=== PATIENT | male | born 1980 | race African-American/Black ===

== ENCOUNTER 2017-06-03 14:13 | Inpatient (IN) | payer MEDICAID, MEDICARE ==
[~2017-06-03] VITALS: Ht 193 cm; Wt 111.6 kg
[2017-06-03 15:09] VITALS: BP 147/87
--- NOTE | 2017-06-03 15:49 | NUR ---
Patient ambulated to bed 4. RN evaluating patient at bedside.
--- NOTE | 2017-06-03 16:02 | NUR ---
DROP BY FRIEND TO THE HOSPITAL DUE TO C/O AUDITORY HALLUCINATIONS, --- PER PT, VOICES SAYING HE AINT SHIT AND HE SHOULD KILL HIMSELF!---PT DOES NOT WANT TO HURT HIMSELF BUT HE IS SCARED. --SOFT SPOKEN APPEARS CALM, OPEN TO CONVERSATION---- HX---PARANOIA SCHIZOPHRENIA, DEPRESSION, RX---NON COMPLIANT, PER PT HE DOESNT LIKE TO TAKE HIS MEDS, AND HE HAS SUICIDAL THOUGHT AND THE VOICE CAME BACK, ENCOURAGED TO VERBALIZED FEELINGS, PT CALM AT THIS TIME.
--- NOTE | 2017-06-03 16:06 | NUR ---
PT ASKING FOR SHARLENE, WILL ASK KITCHEN FOR SHARLENE
--- NOTE | 2017-06-03 16:22 | NUR ---
PT EYES CLOSE, NO AGITATION NOTED, STUDENT NURSE AT BEDSIDE
--- NOTE | 2017-06-03 16:23 | NUR ---
Dr. Duenas evaluating patient at bedside.
--- NOTE | 2017-06-03 16:39 | NUR ---
WILL RELAY TO DR. SALDIVAR RESULT OF URINE DIPSTICK
[2017-06-03 16:47] LABS: BASOPHILS # (AUTO) 0.2 K/uL (0.00-0.22); BASOPHILS % (AUTO) 3.6 % (0.0-2.0); EOSINOPHILS # (AUTO) 0.1 K/uL (0-0.4); EOSINOPHILS % (AUTO) 1.3 % (0.0-4.0); HEMATOCRIT 47.7 % (36-52); HEMOGLOBIN 15.2 g/dL (12.0-18.0); LYMPHOCYTES # (AUTO) 1.4 K/uL (2.0-11.5); LYMPHOCYTES % (AUTO) 24.3 % (20.5-51.1); MEAN CORPUSCULAR HEMOGLOBIN 29 pg (27-31); MEAN CORPUSCULAR HGB CONC 32 g/dL (33-37); MEAN CORPUSCULAR VOLUME 91 fL (80-94); MONOCYTES # (AUTO) 0.8 K/uL (0.8-1.0); MONOCYTES % (AUTO) 14.3 % (1.7-9.3); NEUTROPHILS # (AUTO) 3.4 K/uL (1.8-7.7); NEUTROPHILS % (AUTO) 56.5 % (42.2-75.2); PLATELET COUNT (AUTO) 249 K/uL (140-450); RED BLOOD CELL COUNT(AUTO) 5.27 MIL/uL (4.20-6.10); RED CELL DISTRIBUTION WIDTH 13.9 % (11.6-13.7); WHITE BLOOD COUNT (AUTO) 5.9 K/uL (4.8-10.8)
--- NOTE | 2017-06-03 16:47 | NUR ---
PT CALM, STUDENT AT BEDSIDE, VITAL SIGN STABLE
[2017-06-03 16:49] LABS: APPEARANCE,URINE CLEAR (CLEAR); BILIRUBIN,URINE 1+ (NEGATIVE); BLOOD, URINE TRACE-I (NEGATIVE); COLOR,URINE YELLOW (YELLOW); LEUKOCYTE ESTERASE ,URINE NEGATIVE (NEGATIVE); NITRITE, URINE NEGATIVE (NEGATIVE); PH,URINE 5.5 (5.0-9.0); UGLUCOSE NEGATIVE (NEGATIVE)
[2017-06-03 16:51] LABS: RBC,URINE 0-5 (RARE) /HPF (0-5); WBC,URINE 0-5 (RARE) /HPF (0-5)
[2017-06-03 16:55] LABS: BARBITURATE, URINE NEG. ng/ml (NEG <=200); BENZODIAZEPINE, URINE NEG. ng/mL (NEG <=200); CANNABINOID, URINE NEG. ng/mL (NEG <=50); COCAINE, URINE NEG. ng/mL (NEG <=300); OPIATE, URINE NEG. ng/mL (NEG <=2000); PHENCYCLIDINE SCREEN,URINE NEG. ng/mL (NEG <=25)
[2017-06-03 17:01] LABS: ALBUMIN 4.1 g/dL (3.4-5.0); ANION GAP 8.9 (8-16); ASPARTATE AMINOTRANSFERASE 28 U/L (15-37); CARBON DIOXIDE 32.1 mmol/L (21-32); CHLORIDE 101 mmol/L (98-107); CREATININE 1.5 mg/dL (0.7-1.3); GFR ARICAN-AMERICAN 68 mL/min (>90); GLUCOSE 106 mg/dL (74-106); SODIUM SERUM 138 mmol/L (136-145); TOTAL BILIRUBIN 0.9 mg/dL (0.0-1.0); UREA NITROGEN, BLOOD 25 mg/dL (7-18)
[2017-06-03 17:02] LABS: ACETAMINOPHEN < 0.5 ug/ml (10-30); SALICYLATE < 2.8 mg/dL (2.8-20.0)
--- NOTE | 2017-06-03 17:05 | NUR ---
PT FINISHED EATING SANDWHICH, PT CALM NO AGITATION, NO DISTRESS NOTED.
--- NOTE | 2017-06-03 17:08 | NUR ---
Patient transferred to bed 6 for further care. RN re-evaluating patient at bedside.
--- NOTE | 2017-06-03 17:15 | NUR ---
[place] [facility] evaluating patient for 5150 hold at bedside.
--- NOTE | 2017-06-03 17:47 | NUR ---
PT EATING DINNER, SECURITY AT BEDSIDE
--- NOTE | 2017-06-03 17:58 | NUR ---
PT FINISHED EATING DINNER WITH GOOD APPETITE 100 PERCENT ,PER PT NO PLAN OF COMMITING SUICIDE AT THIS TIME AND HE DOESNT HEARD VOICES AT THIS TIME, PER PT HE HAS DRUG ABUSE , HE TOOK METHS 3 DAYS AGO.
--- NOTE | 2017-06-03 18:28 | NUR ---
Notified Dr. Mcdonald's group of consultation.
--- NOTE | 2017-06-03 18:44 | NUR ---
PT AWARE WILL BE TRANSFER TO THE FLOOR ,CHARGE NURSE WILL INSERT IV AT THIS TIME.
--- NOTE | 2017-06-03 18:56 | NUR ---
CALL FLOOR IF READY FOR TRANSFER PER ROXANNA TRANSFER PT AFTER 7PM, SITTER NOT AVAILABLE AT THIS TIME.
[2017-06-03] MEDS ORDERED: HYDROcodone/APAP 7.5/325 MG 1 TAB PO PRN (19:05)
[2017-06-03] MEDS ORDERED: ONDANSETRON 4 MG/2 ML VIAL IVP PRN (19:05)
[2017-06-03] MEDS ORDERED: ACETAMINOPHEN 325 MG TAB PO PRN (19:05)
--- NOTE | 2017-06-03 19:16 | NUR ---
REPORT GIVEN TO ANA AT BEDSIDE, PT ISRAEL FAM AT BEDSIDE
[2017-06-03 19:30] VITALS: BP 124/66
--- NOTE | 2017-06-03 19:30 | NUR ---
PATIENT ADMITTED TO THE UNIT ON 5150 HOLD FROM THE ER. PATIENT REPORT RECEIVED FROM SHONDA ZHAO AT BEDSIDE. PATIENT IS AWAKE, ALERT AND ORIENTED. AMBULATORY. NO SIGNS AND SYMPTOMS OF DISTRESS NOTED. NO COMPLAINTS OF PAIN AT THIS TIME. SKIN IS INTACT. IV SITE NOTED ON RIGHT HAND, SALINE LOCKED. PLAN OF CARE DISCUSSED WITH PATIENT. 1:1 SITTER PRESENT. WILL CONTINUE TO MONITOR.
[2017-06-03 19:38] LABS: CHOL/HDL RATIO 2.9 (1-4.5); FREE T4 (FREE THYROXINE) 0.85 ng/dL (0.76-1.46); MAGNESIUM 2.3 mg/dL (1.8-2.4); PHOSPHORUS 3.8 mg/dL (2.5-4.9); THYROID STIMULATING HORMONE 0.9 uIU/mL (0.34-3.74)
[2017-06-03 19:42] LABS: PROTHROMBIN TIME 11.1 secs (10.8-13.4)
--- NOTE | 2017-06-03 19:45 | NUR ---
PATIENT SEEN BY DR. LINK
[2017-06-03] MEDS ORDERED: KCL 20 MEQ/WATER INJ PREMIX 200 ML IV ONE (21:25)
--- NOTE | 2017-06-03 21:30 | NUR ---
PATIENT REPORT GIVEN TO SHONDA PERSON FOR CONTINUITY OF CARE AND ADMISSION OF PATIENT
[2017-06-03] MEDS ORDERED: LORazepam 1 MG TAB PO PRN (21:35)
--- NOTE | 2017-06-03 21:35 | NUR ---
RECEIVED REPORT FROM PM NURSE FOR CONTINUATION OF CARE. PT MOVED TO BED 109A. PT RESTING IN BED, AOX4, AMBULATORY, ABLE TO VERBALIZE NEEDS. PT DENIES SI AT THIS TIME BUT DID HAVE VAGUE COMMAND HALLUCINATIONS TO KILL HIMSELF BEFORE ADMISSION. PT IS CALM AND COOPERATIVE. IV ACCESS ASYMPTOMATIC, PATENT AND INTACT. WILL ADMINISTER IVF ORDERED. DISCUSSED AND REVIEWED PLAN OF CARE WITH PT. PT VERBALIZED UNDERSTANDING. ALL NEEDS MET. 1:1 SITTER WITH CLOSE MONITORING MAINTAINED. ENVIRONMENT CHECKED, SAFETY MEASURES ENSURED. CALL LIGHT WITHIN REACH. WILL CONTINUE TO MONITOR.
[2017-06-03] MEDS ORDERED: VENLAFAXINE 37.5 MG TAB ONE (21:42)
[2017-06-03] MEDS ORDERED: QUEtiapine FUMARATE 25 MG TAB ONE (21:43)
[2017-06-03] MEDS: NACL 0.9% 1,000 ML IV SCH (22:09)
[2017-06-03] MEDS: QUEtiapine FUMARATE 25 MG TAB PO SCH (22:11)
[2017-06-03] MEDS: DOCUSATE SODIUM 100 MG GELCAP PO SCH (22:11)
[2017-06-03] MEDS: VENLAFAXINE 37.5 MG TAB PO SCH (22:12)
--- NOTE | 2017-06-03 22:15 | NUR ---
ADMINISTERED DUE MEDS WITH EDUCATION. PT VERBALIZED UNDERSTANDING, TOLERATED MEDS WELL. ALL NEEDS MET. IVF INFUSING WELL. 1:1 SITTER WITH CLOSE MONITORING MAINTAINED. SAFETY MEASURES ENSURED. WILL CONTINUE TO MONITOR.
[2017-06-03] MEDS ORDERED: LURA40TA PO (22:45)
[2017-06-03] MEDS ORDERED: VENL37.55 PO (22:45)
[2017-06-04] VITALS: BP 118/65
--- NOTE | 2017-06-04 00:01 | NUR ---
PT SLEEPING COMFORTABLY, AROUSABLE TO NAME, NO S/S OF ACUTE DISTRESS. ALL NEEDS MET. IVF INFUSING WELL. 1:1 SITTER WITH CLOSE MONITORING MAINTAINED. ENVIRONMENT CHECKED, SAFETY MEASURES ENSURED. WILL CONTINUE TO MONITOR.
[2017-06-04 04:00] VITALS: BP 114/68
[2017-06-04] MEDS: NACL 0.9% 1,000 ML IV SCH ×2 (04:16→08:24)
--- NOTE | 2017-06-04 07:05 | NUR ---
ENDORSED PLAN OF CARE TO AM NURSE. CONDITION STABLE.
[2017-06-04 07:10] LABS: ANION GAP 11.8 (8-16); CARBON DIOXIDE 27.2 mmol/L (21-32); CREATININE 1.1 mg/dL (0.7-1.3)
--- NOTE | 2017-06-04 07:30 | NUR ---
RECEIVED REPORT FROM SHONDA SHELL. PT RESTING IN BED. AAOX4. NO S/S OF ACUTE DISTRESS. PT DENIES PAIN. IV SITE PATENT AND INTACT. PT DENIES SUICIDAL IDEATION AT THIS TIME. NO VOICES HEARD. 1:1 SITTER PRESENT. WILL CONTINUE TO MONITOR.
[2017-06-04 08:00] VITALS: BP 93/63
[2017-06-04] MEDS: DOCUSATE SODIUM 100 MG GELCAP PO SCH ×2 (08:23→20:01)
[2017-06-04] MEDS: VENLAFAXINE 37.5 MG TAB PO SCH (08:23)
[2017-06-04] MEDS: QUEtiapine FUMARATE 25 MG TAB PO SCH (08:23)
--- NOTE | 2017-06-04 09:58 | NUR ---
PATIENT HAS BEEN SCREENED AND CATEGORIZED LOW NUTRITION RISK. PATIENT WILL BE SEEN WITHIN 7 DAYS OF ADMISSION. 06/10/[address]
[2017-06-04 12:00] VITALS: BP 112/83
--- NOTE | 2017-06-04 14:38 | NUR ---
PT RESTING IN BED. NO S/S OF ACUTE DISTRESS. PT DENIES PAIN. CALL LIGHT WITHIN REACH. WILL CONTINUE TO MONITOR.
[2017-06-04 16:00] VITALS: BP 123/63
--- NOTE | 2017-06-04 16:53 | NUR ---
PT RESTING IN BED. NO S/S OF ACUTE DISTRESS. WILL CONTINUE TO MONITOR.
--- NOTE | 2017-06-04 19:12 | NUR ---
Improve/maintain cardiac function/status Addendum: 06/04/17 at 1913 by Juancho Harvey RN ENDORSED PLAN OF CARE TO NIGHT RN. PT REMAINS STABLE.
--- NOTE | 2017-06-04 19:13 | NUR ---
Patient's Plan of Care was discussed and reviewed with SPORTS PHOTOGRAPHER: BILLIE CARTER
--- NOTE | 2017-06-04 19:13 | NUR ---
PATIENT IS CURRENTLY RESTING IN BED AWAKE DENIES PAIN AND DISCOMFORT AT THIS TIME. NO SUICIDAL THOUGHTS OR IDEATION CONTINUES TO HAVE SITTER 1:1 AND CONTINUES TO BE MONITORED.IVF INFUSING WELL IV SITE PATENT.
--- NOTE | 2017-06-04 20:01 | NUR ---
PATIENT REFUSED HIS NIGHT TIME STOOL SOFTENER PATIENT STATES,"IM OK I DON'T WANT IT." PATIENT REFUSED.
--- NOTE | 2017-06-04 23:15 | NUR ---
PATIENT CURRENTLY SLEEPING WELL IN BED IN NO DISTRESS WILL CONTINUE TO MONITOR.
[2017-06-05] MEDS: NACL 0.9% 1,000 ML IV SCH ×3 (00:28→15:33)
--- NOTE | 2017-06-05 00:58 | NUR ---
PATIENT CURRENTLY SLEEPING WILL CHECK VITAL SIGNS LATER WHEN AWAKE.PATIENT CURRENTLY STABLE IVF INFUSING WELL IV SITE PATENT.
--- NOTE | 2017-06-05 02:44 | NUR ---
PATIENT SLEEPING IN BED AT THIS TIME IVF INFUSING WELL IV SITE PATENT. NO PAIN OR DISCOMFORT NOTED.
--- NOTE | 2017-06-05 03:39 | NUR ---
PATIENT SLEEPING WELL IN NO DISTRESS WILL CONTINUE TO MONITOR.
--- NOTE | 2017-06-05 05:00 | NUR ---
PATIENT SLEEPING NO DISTRESS WILL CONTINUE TO MONITOR.
--- NOTE | 2017-06-05 06:37 | NUR ---
PATIENT SLEEPING NO SUICIDAL THOUGHTS OR IDEATIONS DURING THE NIGHT NO ATTEMPTS TO HARM HIMSELF OR STAFF.WILL CONTINUE TO MONITOR.CONTINUES TO HAVE SITTER 1:1 MENDOZA WATCHING OVER THEM.WILL CONTINUE TO OBSERVE.
--- NOTE | 2017-06-05 07:20 | NUR ---
ASSUMED CONTINUITY OF CARE. NO SIGNS AND SYMPTOMS OF ACUTE DISTRESS NOTICED. INITIAL ASSESSMENT DONE. CALM, QUIET AND COOPERATIVE. NO SUICIDAL THOUGHTS OBSERVED. KEEP SURROUNDINGS SAFE. CLOSELY MONITORED BY A ISRAEL MENDOZA.
[2017-06-05 07:22] LABS: ANION GAP 8.4 (8-16); CARBON DIOXIDE 29.8 mmol/L (21-32); CREATININE 1.1 mg/dL (0.7-1.3); HEMATOCRIT 42.6 % (36-52); HEMOGLOBIN 14.1 g/dL (12.0-18.0); MEAN CORPUSCULAR HEMOGLOBIN 30 pg (27-31); MEAN CORPUSCULAR HGB CONC 33 g/dL (33-37); MEAN CORPUSCULAR VOLUME 91 fL (80-94); PLATELET COUNT (AUTO) 209 K/uL (140-450); POTASSIUM 4.2 mmol/L (3.5-5.1); RED BLOOD CELL COUNT(AUTO) 4.69 MIL/uL (4.20-6.10); RED CELL DISTRIBUTION WIDTH 14.1 % (11.6-13.7); WHITE BLOOD COUNT (AUTO) 4.7 K/uL (4.8-10.8)
[2017-06-05 07:27] LABS: MAGNESIUM 2.1 mg/dL (1.8-2.4); PHOSPHORUS 2.8 mg/dL (2.5-4.9)
--- NOTE | 2017-06-05 07:32 | NUR ---
PATIENT STABLE REPORT ENDORSED TO TENT FINISHER JOHNRE HE WILL RESUME CARE OF THE PATIENT.
[2017-06-05 08:00] VITALS: BP 128/79
[2017-06-05 08:35] LABS: EOSINOPHILS % (MANUAL) 5 % (0-4); LYMPHOCYTES % (MANUAL) 45 % (20-46); MONOCYTES % (MANUAL) 13 % (5-12)
[2017-06-05] MEDS: DOCUSATE SODIUM 100 MG GELCAP PO SCH ×2 (08:44→21:00)
[2017-06-05] MEDS: VENLAFAXINE 37.5 MG TAB PO SCH (08:44)
[2017-06-05] MEDS: QUEtiapine FUMARATE 25 MG TAB PO SCH (08:44)
[2017-06-05] MEDS ORDERED: risperiDONE 1 MG TAB PO SCH (09:20)
--- NOTE | 2017-06-05 10:37 | NUR ---
WENT TO BATHROOM. TOLERATED WELL. NO SOB, NOTED. CONTINUE TO MONITOR.
[2017-06-05 12:00] VITALS: BP 111/62
--- NOTE | 2017-06-05 12:00 | NUR ---
VITALS SIGNS STABLE. NO C/O PAIN. CONTINUE MONITORING 1:1.
--- NOTE | 2017-06-05 12:27 | NUR ---
INFORMATION FAXED TO [facility] CALL [facility] FAX [phone] PHONE [phone]
--- NOTE | 2017-06-05 14:54 | NUR ---
Clinical review faxed to [facility] at [phone]
--- NOTE | 2017-06-05 16:25 | NUR ---
SEEN SLEEPING WELL. NO DISCOMFORT NOTED. KEEP FREE FROM INJURY.
--- NOTE | 2017-06-05 19:15 | NUR ---
BEDSIDE REPORT GIVEN TO ELLA RIZZO. IVF INFUSING WELL. IN STABLE CONDITION.
--- NOTE | 2017-06-05 19:16 | NUR ---
RECEIVED REPORT AT BEDSIDE FROM DAY SHIFT NURSE PRICILLA. PT IS A/OX4, ON ROOM AIR. PT HAS A 22G RIGHT HAND IV, INFUSING NS@100ML/HR. SKIN INTACT. SAFETY PRECAUTIONS IN PLACE. 1:1 SITTER. UPDATED BOARD. DISCUSSED PLAN OF CARE WITH PT, PT VERBALIZED UNDERSTANDING. VITAL SIGNS WITHIN NORMAL LIMITS. PT IN STABLE CONDITION, NO SIGNS OF DISTRESS NOTED. BED IN LOW POSITION, CALL LIGHT WITHIN REACH. WILL CONTINUE TO MONITOR.
[2017-06-05 20:05] VITALS: BP 123/71
--- NOTE | 2017-06-05 21:16 | NUR ---
PT REFUSED SCHEDULED MEDICATION, PT EDUCATED ON RISKS AND BENEFITS OF MEDICATION, PT VERBALIZED UNDERSTANDING AND REFUSED. PT IN STABLE CONDITION.
[2017-06-06] VITALS: BP 115/71
--- NOTE | 2017-06-06 03:50 | NUR ---
PT REFUSED IV FLUIDS BEING INFUSED. HE SAID TO "REMOVE THE LINE AND TURN OFF THE PUMP." INFORMED DR LEE, SAID IT WAS OK. PT IN STABLE CONDITION, NO SIGNS OF DISTRESS NOTED. BED IN LOW POSITION, CALL LIGHT WITHIN REACH. WILL CONTINUE TO MONITOR.
[2017-06-06] MEDS: NACL 0.9% 1,000 ML IV SCH ×2 (06:05→16:28)
--- NOTE | 2017-06-06 07:06 | NUR ---
ASSUMED CONTINUITY OF CARE. NO SIGNS AND SYMPTOMS OF ACUTE DISTRESS NOTED. INITIAL ASSESSMENT DONE. CALM, QUIET, AND COOPERATIVE. REFUSED IVF INFUSION. KEEP SURROUNDINGS SAFE. CLOSELY MONITORED BY A SITTER 1:1.
--- NOTE | 2017-06-06 07:10 | NUR ---
ENDORSED PT TO DAY SHIFT NURSE FOR CONTINUITY OF CARE. PT IN STABLE CONDITION.
[2017-06-06 08:00] VITALS: BP 135/82
--- NOTE | 2017-06-06 08:00 | NUR ---
Patient's Plan of Care was discussed and reviewed with RITO Mauro
[2017-06-06] MEDS: VENLAFAXINE 37.5 MG TAB PO SCH (08:28)
[2017-06-06] MEDS: DOCUSATE SODIUM 100 MG GELCAP PO SCH (08:28)
[2017-06-06] MEDS ORDERED: risperiDONE 1 MG TAB PO SCH (09:00)
--- NOTE | 2017-06-06 09:55 | NUR ---
INFORMED DR. BORRERO THAT PT. REFUSED DOCUSATE AND RISPERDAL FOR 0900 SCHEDULE MEDICINE, AND ALSO REFUSED IVF INFUSION.
[2017-06-06 12:00] VITALS: BP 109/65
--- NOTE | 2017-06-06 12:37 | NUR ---
CALLED [facility] CALL CENTER AND SPOKE WITH RADHA. NO PSYCH BEDS YET.
--- NOTE | 2017-06-06 16:12 | NUR ---
DR. WALSH CAME AND SEEN PT.. PT. CALM AND COOPERATIVE.
--- NOTE | 2017-06-06 17:15 | NUR ---
DR. BORRERO AND HUMAN RESOURCES TRAINER -MAURA CAME AND SPOKE TO PT. REGARDING PT. D/C IN AM 06/07/17. PT. CALM, QUIET, COOPERATIVE. NO UNTOWARD BEHAVIOR OBSERVED.
--- NOTE | 2017-06-06 19:15 | NUR ---
BEDSIDE REPORT GIVEN TO ALVIN RIZZO. CALM, QUIET, AND RESTING ON BED. IN STABLE CONDITION. ALSO ENDORSED ABOUT PT. D/C IN AM 06/07/17.
--- NOTE | 2017-06-06 19:35 | NUR ---
RECEIVED PT FROM NURSE PLEITEZ. RESTING QUIETLY AWAKEN BRIEFLY FOR V/S. OFFERS NO COMPLAINTS. INSTRUCTED TO CALL IF NEEDED ASSISTANCE.
[2017-06-06 20:00] VITALS: BP 100/66
[2017-06-07] VITALS: BP 100/44
--- NOTE | 2017-06-07 | NUR ---
AWAKEN FOR V/S,NO COMPLAINTS. UP TO BR.
--- NOTE | 2017-06-07 02:00 | NUR ---
PT SLEEPING SOUNDLY, NO SIGN OF DISTRESS.
--- NOTE | 2017-06-07 04:22 | NUR ---
CHECKED PT, APPEARS ASLEEP.
[2017-06-07 06:33] VITALS: BP 100/44
--- NOTE | 2017-06-07 06:55 | NUR ---
D/C PT TO HOME PER PT, GIVEN BUS PASS, NO C/O PAIN OR RESPIRATORY DISTRESS.
--- NOTE | 2017-06-07 11:55 | NUR ---
CM NOTE PER CM [place] [facility] PH# [phone] EXT [phone], REVIEWS SHOULD BE SENT TO [facility]. CONCURRENT REVIEW FAXED TO [facility] [phone] [place] PH# [phone] AND TO [facility] [phone] PH# [phone].
== END 2017-06-07 07:57 | disposition home or self-care (01) | DRG 812 ==
LOC: MED 14:13 → MTU 18:38
PROVIDERS: ADMIT Student in an Organized Health Care Education/Training Program; ATTEND Student in an Organized Health Care Education/Training Program
DX: T43.621A Poisoning by amphetamines, accidental (unintentional), initial encounter (principal); N17.0 Acute kidney failure with tubular necrosis; G92 Toxic encephalopathy; F33.2 Major depressive disorder, recurrent severe without psychotic features; E78.5 Hyperlipidemia, unspecified; F20.0 Paranoid schizophrenia; F15.10 Other stimulant abuse, uncomplicated; F19.10 Other psychoactive substance abuse, uncomplicated; R45.851 Suicidal ideations; F17.210 Nicotine dependence, cigarettes, uncomplicated; Z91.14 Patient's other noncompliance with medication regimen; Z59.0 Homelessness; Y92.89 Other specified places as the place of occurrence of the external cause
CPT/HCPCS: 36415; 71010; 80048; 80053; 80305; 81001; 82140; 82150; 82948; 83605; 83690; 83735; 83880; 84100; 84439; 84443; 84484; 85025; 85610; 85730; 87081; 93005; 99285; G0480; G0482; J7030; Q0092

== ENCOUNTER 2018-03-09 19:33 | Inpatient (IN) | payer MEDICAID ==
[~2018-03-09] VITALS: Ht 193 cm; Wt 120.2 kg
[~2018-03-09 19:33] MED LIST: QUET100T44 PO
--- NOTE | 2018-03-09 19:34 | NUR ---
PT BROCK BLS TO ER BED 05
--- NOTE | 2018-03-09 19:34 | NUR ---
37/M BIBA FOR ALTERED MENTAL STATUS/AGITATION PICKED UP FROM [facility] TODAY. PER EMS, PT WALKED IN AT [facility] AND STARTED ASKING FOR HELP. PT NOTED WITH INCREASED AGITATION AND PARANIOA ON ARRIVAL. ER MD AT BEDSIDE.
[2018-03-09] MEDS ORDERED: LORazepam 2 MG/ML VIAL IM ONE (19:35)
[2018-03-09] MEDS ORDERED: HALOPERIDOL IM 5 MG/ML VIAL IM ONE (19:35)
[2018-03-09] MEDS ORDERED: LORazepam 1 MG TAB PO ONE (19:35)
[2018-03-09] MEDS ORDERED: NACL 0.9% 1,000 ML IV ONE (19:35)
[2018-03-09] MEDS ORDERED: HALOPERIDOL 5 MG TAB PO STA (19:40)
[2018-03-09] MEDS ORDERED: LORazepam 1 MG TAB ONE (19:40)
[2018-03-09] MEDS ORDERED: HALOPERIDOL IM 5 MG/ML VIAL ONE (19:41)
[2018-03-09] MEDS ORDERED: LORazepam 2 MG/ML VIAL ONE (19:41)
--- NOTE | 2018-03-09 19:45 | NUR ---
PT REFUSES TO LAY DOWN ON BED AT THIS TIME. SECURITY AT BEDSIDE.
--- NOTE | 2018-03-09 20:01 | NUR ---
PT LAID DOWN ON BED, RESTING COMFORTABLY.
--- NOTE | 2018-03-09 22:00 | NUR ---
Patient appears to be resting comfortably in bed. Respirations even and unlabored.
[2018-03-09 23:48] LABS: BASOPHILS % (AUTO) 0.5 % (0.0-2.0); EOSINOPHILS # (AUTO) 0.1 K/uL (0-0.4); EOSINOPHILS % (AUTO) 1.5 % (0.0-4.0); HEMATOCRIT 45.6 % (36-52); LYMPHOCYTES # (AUTO) 2.1 K/uL (2.0-11.5); LYMPHOCYTES % (AUTO) 24.4 % (20.5-51.1); MEAN CORPUSCULAR HEMOGLOBIN 30 pg (27-31); MEAN CORPUSCULAR HGB CONC 33 g/dL (33-37); MEAN CORPUSCULAR VOLUME 90.9 fL (80-94); MONOCYTES % (AUTO) 12.3 % (1.7-9.3); NEUTROPHILS # (AUTO) 5.2 K/uL (1.8-7.7); NEUTROPHILS % (AUTO) 61.3 % (42.2-75.2); PLATELET COUNT (AUTO) 238 K/uL (140-450); RED BLOOD CELL COUNT(AUTO) 5.02 MIL/uL (4.20-6.10); RED CELL DISTRIBUTION WIDTH 14.2 % (11.6-13.7); WHITE BLOOD COUNT (AUTO) 8.4 K/uL (4.8-10.8)
[2018-03-09 23:55] LABS: CARBON DIOXIDE 28.6 mmol/L (21-32); CHLORIDE 103 mmol/L (98-107); CREATININE 1.4 mg/dL (0.7-1.3); GFR ARICAN-AMERICAN 73 mL/min (>90); GLUCOSE 99 mg/dL (74-106); POTASSIUM 3.6 mmol/L (3.5-5.1); SODIUM SERUM 140 mmol/L (136-145); UREA NITROGEN, BLOOD 22 mg/dL (7-18)
[2018-03-09 23:57] LABS: BARBITURATE, URINE NEG. ng/ml (NEG <=200); BENZODIAZEPINE, URINE NEG. ng/mL (NEG <=200); CANNABINOID, URINE NEG. ng/mL (NEG <=50); COCAINE, URINE NEG. ng/mL (NEG <=300); OPIATE, URINE NEG. ng/mL (NEG <=2000); PHENCYCLIDINE SCREEN,URINE NEG. ng/mL (NEG <=25)
[2018-03-10 00:02] LABS: ALBUMIN 4.1 g/dL (3.4-5.0); ASPARTATE AMINOTRANSFERASE 32 U/L (15-37); TOTAL BILIRUBIN 1.6 mg/dL (0.0-1.0)
[2018-03-10 00:04] LABS: ACETAMINOPHEN < 0.5 ug/ml (10-30); SALICYLATE < 2.8 mg/dL (2.8-20.0)
--- NOTE | 2018-03-10 00:18 | NUR ---
Patient appears to be resting comfortably in bed. Vital Signs within normal limits. Respirations even and unlabored.
--- NOTE | 2018-03-10 00:44 | NUR ---
PER DR. RAO CONSULT FOR TELEPSYCH REQUESTED
--- NOTE | 2018-03-10 01:47 | NUR ---
Patient appears to be resting comfortably in bed. Vital Signs within normal limits. Respirations even and unlabored.
[2018-03-10] MEDS ORDERED: QUEtiapine FUMARATE 25 MG TAB PO STA (02:44)
[2018-03-10] MEDS ORDERED: QUEtiapine FUMARATE 25 MG TAB ONE (03:01)
--- NOTE | 2018-03-10 03:46 | NUR ---
Patient appears to be resting comfortably in bed. Vital Signs within normal limits. Respirations even and unlabored.
--- NOTE | 2018-03-10 03:50 | NUR ---
PT PLACED ON [address] RAO. BELONGINGS WITH SECURITY, SITTER AT BEDSIDE
--- NOTE | 2018-03-10 04:45 | NUR ---
[facility] staff faxed packets to [facility], [facility], [facility], [facility]. I called [facility] and spoke with Lisa, no beds available, packet was faxed. Called [facility] and spoke with Keke, no beds available, and she asked to call back later in the morning to see if they have a discharges.
--- NOTE | 2018-03-10 04:50 | NUR ---
Patient appears to be resting comfortably in bed. Vital Signs within normal limits. Respirations even and unlabored. Sitter at bedside
--- NOTE | 2018-03-10 05:50 | NUR ---
Patient appears to be resting comfortably in bed. Vital Signs within normal limits. Respirations even and unlabored. Sitter at bedside
--- NOTE | 2018-03-10 07:10 | NUR ---
GAVE REPORT TO TARAN MERCHANT FOR CONTINUATION OF CARE
--- NOTE | 2018-03-10 07:27 | NUR ---
patient awake communicating with staff/ doctor.denies discomfort
--- NOTE | 2018-03-10 07:56 | NUR ---
STILL AWAITING FOR PSYCH. PLACEMENT.PATIENT CALM AND RESTING AT THIS TIME. EMT AT BEDSIDE
--- NOTE | 2018-03-10 08:24 | NUR ---
patient awake,alert,oriented.patient calm,no agitation no sign of psychosis.ordered breakfast
[2018-03-10] MEDS ORDERED: ACETAMINOPHEN 325 MG TAB PO PRN (08:40)
[2018-03-10] MEDS ORDERED: DOCUSATE SODIUM 100 MG GELCAP PO PRN (08:40)
[2018-03-10] MEDS ORDERED: ONDANSETRON 4 MG/2 ML VIAL IM/IVP PRN (08:40)
--- NOTE | 2018-03-10 08:46 | NUR ---
got report from obi pt up in bed eating at this time.
--- NOTE | 2018-03-10 09:23 | NUR ---
Patient will be admitted to care of DR BEACH. Admited to MED SURG. Will go to room 110-B. Belongings list completed. Report to SHONDA MCKENNA.
[2018-03-10 09:30] VITALS: BP 100/51
[2018-03-10] MEDS ORDERED: NACL 0.9% 1,000 ML IV SCH (09:45)
[2018-03-10] MEDS ORDERED: MECLIZINE 25 MG TAB PO PRN (09:45)
--- NOTE | 2018-03-10 09:45 | NUR ---
RECEIVED REPORT FROM ER NURSE AT THE BEDSIDE. PT IS ON 5150 FOR SI. ADMITTING DX :SUICIDAL IDEATION, ENCEPHALOPATHY WITH CHIEF COMPLAIN OF ALTERED MENTAL STATUS. PT HAS HX OF SCHIZOPHRENIA, MAJOR DEPRESSIVE DISORDER. PER ER NURSE, PT WAS ADMINISTERED SEROQUEL 50 MH, ATIVAN, HALDOL 5MG . PT AWAKE , ALERT AND ORIENTED AT TIME OF ARRIVAL. PT IN CALM AND COOPERATIVE MOOD. VS AT TIME OF ARRIVAL T-97.5, BP 100/51, HR74, RR 20, O2 SAT 95%, DENIES ANY PAIN . NO CONTRABANDS PRESENT WITH PT. HAS IV LFT AC SL 20G. SITE INTACT AND PATENT. SKIN IS INTACT. PT POSITIVE FRO METHAMPHETAMINE ABUSE. STATES TO HAVE USED SPICE BEFOR HE CAME TO ER, WAS RUNNING INTO TRAFFIC WITH SUICIDAL IDEATION. PT AOX4, LUNGS SOUNDS CLEAR. PT ON 1:1 SITTER FOR CLOSE MONITORING FOR SI. WILL CONTINUE TO MONITOR PT.
[2018-03-10 10:51] LABS: CHOL/HDL RATIO 3.5 (1-4.5); MAGNESIUM 2.4 mg/dL (1.8-2.4); PHOSPHORUS 3.1 mg/dL (2.5-4.9); THYROID STIMULATING HORMONE 1.27 uIU/mL (0.34-3.74)
--- NOTE | 2018-03-10 11:00 | NUR ---
PT SLEEPING ON HIS BEDSIDE. PT CALM AND COOPERATIVE. FOLLOWS COMMAND. NO AGITATION NOTED. EKG DONE IN PT. WILL CONTINUE TO MONITOR PT.
--- NOTE | 2018-03-10 11:44 | NUR ---
ADMINISTERED 0.9NS @100 ML/HR TO PT. TOLERATED WELL. PT SLEEPING IN HIS BED. NO SIGN OF DISTRESS. WILL CONTINUE TO MONITOR PT. PT ON 1:1 SITTER FOR SUICIDAL IDEATION.
[2018-03-10 12:00] VITALS: BP 104/62
--- NOTE | 2018-03-10 13:17 | NUR ---
PT AWAKE. ATE HIS FOOD . WENT BACK TO SLEEP. NO SIGN OF DISTRESS NOTED. WILL CONTINUE TO MONITOR PT.
--- NOTE | 2018-03-10 14:43 | NUR ---
CHECKED ON PT. SLEEPING, NO DISTRESS NOTED, WILL CONTINUE TO MONITOR PT.
[2018-03-10 16:28] LABS: APPEARANCE,URINE CLEAR (CLEAR); BILIRUBIN,URINE 1+ (NEGATIVE); BLOOD, URINE NEGATIVE (NEGATIVE); COLOR,URINE YELLOW (YELLOW); LEUKOCYTE ESTERASE ,URINE NEGATIVE (NEGATIVE); NITRITE, URINE NEGATIVE (NEGATIVE); UGLUCOSE NEGATIVE (NEGATIVE)
[2018-03-10 16:40] VITALS: BP 110/47
--- NOTE | 2018-03-10 16:43 | NUR ---
PT SLEEPING IN HIS BED. WENT TO RESTROOM. COLLECTED URINE SAMPLE FOR UA. DENIES ANY PAIN. NO DISTRESS NOTED. PT CALM , COOPERATIVE. APPROPRIATE BEHAVIOR. WILL CONTINUE TO MONITOR PT.
[2018-03-10] MEDS: QUEtiapine FUMARATE 100 MG TAB PO SCH (17:17)
--- NOTE | 2018-03-10 17:19 | NUR ---
ADMINISTERED MEDS TO PT ORDERED. TOLERATED WELL. NO SIGN OD DISTRESS. WILL CONTINUE TO MONITOR PT.
--- NOTE | 2018-03-10 18:24 | NUR ---
PT SEEN BY DR. WALSH , PSYCHOLOGIST. OKAY TO TRANSFER TO [facility] ONCE MEDICALLY CLEARED. CONTINUES TO MEET 5150 HOLD. WILL CONTINUE TO MONITOR PT.
--- NOTE | 2018-03-10 19:14 | NUR ---
PT ENDORSED TO PM NURSE FOR CONTINUITY OF CARE. PT IN STABLE CONDITION.
--- NOTE | 2018-03-10 19:15 | NUR ---
RECEIVED PT IN STABLE CONDITION. PT ON MED SURG. HOLD. SLEEPING IN BED. WITH NO S/S OF ANY DISCOMFORT NOTED. ERNESTO ON THE LT C #20. BED ON LOW POSITION. WILL CONTINUE TO MONITOR PT FOR ANY SUICIDAL THOUGHTS.
--- NOTE | 2018-03-10 19:25 | NUR ---
CHECKED ON PT AFTER PT HAD SOME PUDDING AND JUICE. SAFETY CHECK DONE . NO SHARP OBJECTS NOTED IN THE AREA. ONLY PAPER BAG FOR TRASH IN ROOM. WILL CONTINUE TO CLOSELY MONITOR PT.
--- NOTE | 2018-03-10 19:30 | NUR ---
PT AWAKE. GOT UP TO THE BATHROOM AN VOIDED. THEN C/O THAT HE IS UNCOMFORTABLE WITH THE IV ACCESS, HE SAID IT HURTS. EXPLAINED THE PURPOSE OF THE NEEDED BUT STILL INSISTED ON HAVING IT REMOVED. DC'D WITH CATHETER INTACT . NO BLEEDING NOTED. WILL TRY LATER IF PT WILL ALLOW TO START IN ANOTHER SITE.
--- NOTE | 2018-03-10 20:00 | NUR ---
PT IS SLEEPING IN BED AT THIS TIME. WILL CONTINUE TO MONITOR.
--- NOTE | 2018-03-10 21:00 | NUR ---
PT SLEEPING IN BED . NO S/S OF ANY DISCOMFORT NOTED.
--- NOTE | 2018-03-10 21:03 | NUR ---
ABLE TO TALKED TO DR. MARIE,RESIDENT MD. MADE HIM AWARE ABOUT PT NO IV ACCESS AT THIS TIME. HE SAID IT IS OK. WILL CONTINUE TO CLOSELY MONITOR PT.
--- NOTE | 2018-03-10 23:21 | NUR ---
Called [facility] and s/w Rose, they have no beds at this time. Called [facility] and s/w Lio they have no beds at this time and are still reviewing charts. Called [facility] and s/w Dinh, they have no beds at this time and are still reviewing charts. Called [facility] and s/w Eloisa, No vacancies at this time. Called [facility] s/w Naa, No bed vacancies. Called [facility] and Left message, No Answer. Called [facility] and s/w Haylee, No beds available today. Called [facility] and s/w Cass, No bed vacancies tonight. Called [facility] and s/w Elizabeth, no Beds at this time. Called [facility] and s/w David, No beds available at this time. Called [facility] and s/w Myriam, No vacancies at this time.
[2018-03-11 00:55] VITALS: BP 99/51
--- NOTE | 2018-03-11 01:30 | NUR ---
PT ASLEEP. NO S/S OF ANY DISCOMFORT NOTED. WILL CONTINUE TO MONITOR.
--- NOTE | 2018-03-11 02:40 | NUR ---
PT UP TO THE RESTROOM AND VOIDED. NO C/O ANY DISCOMFORT NOTED.
--- NOTE | 2018-03-11 04:20 | NUR ---
PT IS ASLEEP. NO S/S OF ANY DISCOMFORT NOTED .
--- NOTE | 2018-03-11 05:34 | NUR ---
No updates from contracted hospitals at this time. will endorse to morning shift to continue looking for placement.
--- NOTE | 2018-03-11 06:00 | NUR ---
PT STILL ASLEEP. NO C/O ANY DISCOMFORT NOTED .
--- NOTE | 2018-03-11 07:08 | NUR ---
ENDORSED PT IN STABLE CONDITION TO AM NURSE FOR CONTINUITY OF CARE.
[2018-03-11 07:25] LABS: BASOPHILS % (AUTO) 0.8 % (0.0-2.0); EOSINOPHILS # (AUTO) 0.5 K/uL (0-0.4); EOSINOPHILS % (AUTO) 8.8 % (0.0-4.0); HEMATOCRIT 45.4 % (36-52); LYMPHOCYTES # (AUTO) 1.8 K/uL (2.0-11.5); LYMPHOCYTES % (AUTO) 34.9 % (20.5-51.1); MEAN CORPUSCULAR HEMOGLOBIN 30 pg (27-31); MEAN CORPUSCULAR HGB CONC 33 g/dL (33-37); MEAN CORPUSCULAR VOLUME 90.7 fL (80-94); MONOCYTES # (AUTO) 0.6 K/uL (0.8-1.0); MONOCYTES % (AUTO) 12.3 % (1.7-9.3); NEUTROPHILS # (AUTO) 2.3 K/uL (1.8-7.7); NEUTROPHILS % (AUTO) 43.2 % (42.2-75.2); PLATELET COUNT (AUTO) 230 K/uL (140-450); RED CELL DISTRIBUTION WIDTH 14.2 % (11.6-13.7); WHITE BLOOD COUNT (AUTO) 5.3 K/uL (4.8-10.8)
[2018-03-11 08:00] VITALS: BP 121/78
--- NOTE | 2018-03-11 08:00 | NUR ---
RECEIVED PT FROM CHARGE NURSE, PT STAYING IN BED. RA. NO SOB. 5150. EXPLAINED TO PT POC, PT VERBALIZED UNDERSTANDING. SITTER AT BEDSIDE. WILL CONTINUE TO MONITOR.
[2018-03-11 08:04] LABS: ANION GAP 9.1 (8-16); CARBON DIOXIDE 30.8 mmol/L (21-32); CREATININE 1.1 mg/dL (0.7-1.3); POTASSIUM 3.9 mmol/L (3.5-5.1)
[2018-03-11 08:09] LABS: T4 (THYROXINE) 7.8 ug/dL (4.5-12.0)
--- NOTE | 2018-03-11 11:09 | NUR ---
PT SLEEPING, AMBULATE TO BATHROOM OCCASIONALLY.
--- NOTE | 2018-03-11 12:15 | NUR ---
PT HAS A GOOD APPETITE. ATE THE WHOLE TRAY.
[2018-03-11 16:00] VITALS: BP 131/80
--- NOTE | 2018-03-11 16:25 | NUR ---
PT TOOK A SHOWER, CHARGE NURSE AWARE.
[2018-03-11] MEDS: QUEtiapine FUMARATE 100 MG TAB PO SCH (17:01)
--- NOTE | 2018-03-11 17:06 | NUR ---
PT STAYING IN BED.
--- NOTE | 2018-03-11 19:13 | NUR ---
RECEIVED PT IN STABLE CONDITION FROM AM NURSE. PT SLEEPING IN BED WITH NO DISCOMFORT NOR PAIN NOTED. MED SURG PT BUT ON 1:1 SITTER DUE TO SUICIDAL IDEATION. NEED CLOSE OBSERVATION. FOR SAFETY . BED ON LOW POSITION. WILL CONTINUE TO MONITOR.
--- NOTE | 2018-03-11 19:15 | NUR ---
PT AWAKE, UP TO THE RESTROOM ,VOIDED. NO SPECIFIC NEEDS AT THIS TIME.
--- NOTE | 2018-03-11 21:00 | NUR ---
PT IS ASLEEP. NO S/S OF ANY DISCOMFORT NOTED AT THIS TIME.
--- NOTE | 2018-03-11 22:20 | NUR ---
TALKED TO DR. MARIE,RESIDENT ON DUTY REGARDING THE NEED TO HAVE PSYCHIATRIC CONSULT ORDER.
[2018-03-11 23:30] VITALS: BP 129/83
--- NOTE | 2018-03-12 00:45 | NUR ---
PT ASLEEP. NO S/S OF ANY DISTRESS NOR DISCOMFORT NOTED. WILL CONTINUE TO MONITOR.
--- NOTE | 2018-03-12 02:45 | NUR ---
ASLEEP. NO S/S OF ANY DISCOMFORT NOTED.
--- NOTE | 2018-03-12 04:15 | NUR ---
No update from contacted facilities at this time. Called [facility] and s/w Rose, they have no beds at this time. Called [facility] and s/w Lio they have no beds at this time and are still reviewing charts. Called [facility] and s/w Sasha, they have no beds at this time and are still reviewing charts. Called [facility] and s/w Alecia, No vacancies at this time. Called [facility] s/w Naa, No bed vacancies. Called [facility] and Left message, No Answer. Called [facility] and s/w Sunday, No beds available today. Called [facility] and s/w Misty, No bed vacancies tonight. Called [facility] and s/w Torrie, no Beds at this time. Called [facility] and s/w Miguel, No beds available at this time. Called [facility] and s/w Samira, No vacancies at this time. Will endorse to morning shift to continue looking for placement.
--- NOTE | 2018-03-12 05:50 | NUR ---
PT GOT UP AND ASKED FOR SOME JUICE . PROVIDED WITH 2 APPLE JUICES.
--- NOTE | 2018-03-12 07:05 | NUR ---
ASSUMED CONTINUITY OF CARE. NO SIGNS AND SYMPTOMS OF ACUTE DISTRESS NOTED. PT. SLEEPING AT THIS TIME. KEEP SURROUNDINGS SAFE. CLOSELY MONITORED 1:1 FOR SUICIDAL PREVENTION.
--- NOTE | 2018-03-12 07:13 | NUR ---
ENDORSED PT IN STABLE CONDITION TO AM NURSE FOR CONTINUITY OF CARE.
--- NOTE | 2018-03-12 07:33 | NUR ---
SERVED BREAKFAST TRAY. PT. DON'T HAVE IV ACCESS AND REFUSED IV INSERTION. NO SUICIDAL THOUGHTS OBSERVED. CALMLY EAT BREAKFAST FOOD. CONTINUE TO MONITOR CLOSELY 1:1 TO PREVENT SUICIDAL.
--- NOTE | 2018-03-12 07:51 | NUR ---
DR. DAVIS, RESIDENTS MD, AND CHARGE NURSE CAME FOR PT. AM ROUNDS. PT. CALM AND COOPERATIVE.
--- NOTE | 2018-03-12 07:55 | NUR ---
Patient's Plan of Care was discussed and reviewed with RAILWAYS ASSISTANT: PRICILLA
[2018-03-12 08:00] VITALS: BP 125/55
--- NOTE | 2018-03-12 08:45 | NUR ---
PATIENT HAS BEEN SCREENED AND CATEGORIZED MODERATE NUTRITION RISK. PATIENT WILL BE SEEN WITHIN 3-5 DAYS OF ADMISSION. 03/12/18 03/14/[address]
--- NOTE | 2018-03-12 09:23 | NUR ---
YURY FROM [facility] CALLED AND SAID THAT THEIR NURSE WILL REVIEW PT. INFORMATION AND SHE (YURY) WILL CALL IF BED IS AVAILABLE FOR PT.. INFORMED CHARGE NURSE ANTONIO CORRALES -SHONDA.
--- NOTE | 2018-03-12 10:11 | NUR ---
THE BEHAVIORAL [facility]ALTH CALL CENTER IS ASSISTING WITH PLACEMENTS. WE HAVE HAD NO UPDATES FROM [facility].
--- NOTE | 2018-03-12 10:52 | NUR ---
WENT TO BATHROOM. TOLERATED WELL. NO C/O PAIN. NO SOB, NOTED. KEEP FREE FROM INJURY.
[2018-03-12 12:00] VITALS: BP 108/51
--- NOTE | 2018-03-12 12:19 | NUR ---
[facility]: POSSIBLE BEDS, S/W JOSÉ MIGUEL, SHE IS REQUESTING PACKET TO BE RESENT. [facility]: S/W ANDREI, SHE IS REQUESTING PACKET TO BE RESENT. [facility]: NO BEDS PER [facility]: NO BEDS PER [facility]: NO ANS, ALL REPRESENTATIVES ARE CURRENTLY BUSY.
--- NOTE | 2018-03-12 14:23 | NUR ---
SLEEPING IN COMFORTABLE POSITION. NO LABORED BREATHING NOTED. CONTINUE MONITORING CLOSELY 1:1 FOR SUICIDAL PREVENTION.
[2018-03-12 16:00] VITALS: BP 108/54
[2018-03-12] MEDS: QUEtiapine FUMARATE 100 MG TAB PO SCH (16:48)
--- NOTE | 2018-03-12 19:14 | NUR ---
BEDSIDE REPORT GIVEN TO ROLANDO RIZZO. IN STABLE CONDITION. NO INJURY DURING AM SHIFT NOTED.
--- NOTE | 2018-03-12 19:20 | NUR ---
RECEIVED FROM AM NURSE AWAKE AND ALERT. ABLE TO VERBALIZE SIMPLE NEEDS WELL. SITTER IN PLACE. DENIES ANY PAIN AT THIS TIME. CARE PLANS FOR THE NIGHT DISCUSSED WITH HIM. ENCOURAGED TO CALL FOR NAY HELP HE MAY NEED.
--- NOTE | 2018-03-12 21:24 | NUR ---
SLEEPING. PROVIDED WITH EAR PLUGS REQUESTED RT " NOISY NEIGHBOR AND OTHER PT.S " PROVIDED WITH ORANGE JUICE REQUESTED. ABLE TO VERBALIZE NEEDS WELL. DENIES ANY PAIN. SITTER IN PLACE.
--- NOTE | 2018-03-12 23:11 | NUR ---
[employer]IONAL [employer]ERIN[employer] TECHNICIAN CALLED TO INFORM US THAT 5150 HOLD WILL IN THE MORNING, THERE IS POTENTIAL BED.
[2018-03-12 23:50] VITALS: BP 102/55
--- NOTE | 2018-03-12 23:52 | NUR ---
VITAL SIGNS TAKEN. NO COMPLAINTS DONE. SLEEPING WELL.
--- NOTE | 2018-03-13 02:30 | NUR ---
SLEEPING. NO COMPLAINTS DONE SINCE START OF SHIFT. ABLE TO VERBALIZE NEEDS WELL.
--- NOTE | 2018-03-13 02:54 | NUR ---
There are no beds at this time , Charge nurse LAURA made aware , 5150 is .
--- NOTE | 2018-03-13 04:36 | NUR ---
SLEEPING WELL THIS SHIFT. WITH SITTER IN PLACE. ABLE TO VERBALIZE NEEDS WELL.
--- NOTE | 2018-03-13 07:21 | NUR ---
ASSUMED CONTINUITY OF CARE. NO SIGNS AND SYMPTOMS OF ACUTE DISTRESS NOTED. INITIAL ASSESSMENT DONE. CALM, QUIET AND COOPERATIVE. NO SUICIDAL THOUGHTS OBSERVED. KEEP ENVIRONMENT SAFE. CLOSELY MONITORED BY A ISRAEL CHAVEZ -SHONDA FOR SUICIDAL PREVENTION.
--- NOTE | 2018-03-13 07:28 | NUR ---
ENDORSED TO THE NEXT NURSE FOR CONTINUITY OF CARE. SLEPT WELL. WAKES UP EASILY WHEN TOUCHED. DENIES ANY PAIN AT THIS TIME. NO COMPLAINTS DONE. VERBALIZES WELL. ROM X 4.
[2018-03-13 08:00] VITALS: BP 113/59
--- NOTE | 2018-03-13 08:00 | NUR ---
Patient's Plan of Care was discussed and reviewed with ETHYLBENZENE CRACKING SUPERVISOR: PRICILLA
--- NOTE | 2018-03-13 11:08 | NUR ---
WENT TO BATHROOM. TOLERATED WELL. NO C/O PAIN.
[2018-03-13 12:00] VITALS: BP 111/49
--- NOTE | 2018-03-13 15:30 | NUR ---
CM NOTE PER ANALILIA OF [facility], STILL PENDING REVIEW. NO BEDS AVAILABLE AT THIS TIME. PER KIRSTEN OF [facility], NO BEDS AVAILABLE AT THIS TIME. PER DARRIN OF [facility], NO ADULT BEDS AVAILABLE AT THIS TIME. PER MIMI OF [facility], NO BEDS AVAILABLE AT THIS TIME. PER DANIA OF [facility], NO BEDS AVAILABLE.
--- NOTE | 2018-03-13 15:38 | NUR ---
No updates from contacted facilties: [facility] s/w [place], No bed Vacancies. [facility] s/w [place], No beds at this this time, long waitlist. [facility] s/w [place], No beds available [facility] s/w [place], No bed vacancies [facility] s/w [place], Pending bed discharges, going through waitlist [facility] s/w [place], No bed vacancies for Adults or Kids [facility] s/w [place], possible beds pending D/C [facility] s/w [place], no bed vacancies [facility] s/w [place], no bed vacancies. will continue to look for bed placement.
--- NOTE | 2018-03-13 16:02 | NUR ---
DR. WALSH CAME AND POKE TO PT. AT BEDSIDE. CALM AND COOPERATIVE.
--- NOTE | 2018-03-13 16:30 | NUR ---
D/C VIA [facility] WITH MEDICAL [facility]SP[facility]TER. IN STABLE CONDITION. Addendum: 03/13/18 at 1941 by Eddie Shell LVN WRONG ENTRY: ACTUAL TIME OF D/C WAS 1829.
[2018-03-13] MEDS: QUEtiapine FUMARATE 100 MG TAB PO SCH (16:59)
--- NOTE | 2018-03-13 17:00 | NUR ---
EXPLAINED TO PT. ABOUT MD D/C ORDER, D/C INSTRUCTIONS AND TEACHING, PAIN MANAGEMENT TEACHING, DISEASE MANAGEMENT TEACHING, MEDICATION RECONCILIATION LIST EDUCATION. VERBALIZED UNDERSTANDING.
== END 2018-03-13 18:30 | disposition designated cancer center or children's hospital (05) | DRG 812 ==
LOC: MED 19:33 → MTU 03-10 08:37
PROVIDERS: ADMIT Family Medicine; ATTEND Family Medicine
DX: T43.621A Poisoning by amphetamines, accidental (unintentional), initial encounter (principal); N17.0 Acute kidney failure with tubular necrosis; G92 Toxic encephalopathy; Y92.89 Other specified places as the place of occurrence of the external cause; F25.0 Schizoaffective disorder, bipolar type; F15.10 Other stimulant abuse, uncomplicated; R45.851 Suicidal ideations; I10 Essential (primary) hypertension; R74.0 Nonspecific elevation of levels of transaminase and lactic acid dehydrogenase [LDH]; F32.9 Major depressive disorder, single episode, unspecified; Z59.0 Homelessness; Z91.19 Patient's noncompliance with other medical treatment and regimen; E80.6 Other disorders of bilirubin metabolism
CPT/HCPCS: 36415; 70450; 71045; 80048; 80053; 80305; 81003; 82140; 82150; 83690; 83735; 83880; 84100; 84436; 84443; 84479; 84484; 85025; 85610; 85730; 87081; 93005; 99285; G0480; G0482; J1630; J2060; J7030

== ENCOUNTER 2019-04-10 07:22 | Emergency (ER) | payer MEDICAID ==
[~2019-04-10] VITALS: Ht 188 cm; Wt 113.4 kg
[2019-04-10 07:25] VITALS: BP 156/85
[2019-04-10] MEDS: OLANZapine 5 MG ODT PO ONE (07:31)
[2019-04-10 10:50] VITALS: BP 144/76
== END 2019-04-10 10:50 | disposition home or self-care (01) ==
LOC: MED 07:22
DX: F15.129 Other stimulant abuse with intoxication, unspecified (principal); R41.82 Altered mental status, unspecified; F20.9 Schizophrenia, unspecified; F24 Shared psychotic disorder; Z79.899 Other long term (current) drug therapy
CPT/HCPCS: 99283

== ENCOUNTER 2019-08-03 01:09 | Emergency (ER) | payer MEDICAID ==
[~2019-08-03] VITALS: Ht 193 cm; Wt 113.4 kg
[2019-08-03 01:09] VITALS: BP 154/80
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
--- NOTE | 2019-08-03 01:09 | NUR ---
BEBETO GUTIÉRREZ ALS TO ER BED 02
[2019-08-03] MEDS ORDERED: HALOPERIDOL IM 5 MG/ML VIAL IM ONE (01:25)
[2019-08-03] MEDS ORDERED: NACL 0.9% 1,000 ML IV ONE (01:25)
[2019-08-03] MEDS ORDERED: LORazepam 2 MG/ML VIAL IM ONE (01:25)
--- NOTE | 2019-08-03 02:14 | NUR ---
PATIENT SITTING IN BED QUIETLY. NO DISTRESS NOTED. WILL CONTINUE TO MONITOR.
--- NOTE | 2019-08-03 02:18 | NUR ---
PATIENT AMBULATED TO RESTROOM.
--- NOTE | 2019-08-03 03:03 | NUR ---
PATIENT IS RESTING WITH EYES CLOSED. VSS. WILL CONTINUE TO MONITOR.
[2019-08-03 04:00] VITALS: BP 141/79
--- NOTE | 2019-08-03 04:00 | NUR ---
Patient discharged with v/s stable. Written and verbal after care instructions given and explained. Patient verbalized understanding. Ambulatory with steady gait; PROVIDED PATIENT WITH FOOD AND SHOES. All questions addressed prior to discharge. Advised to follow up with PMD.
== END 2019-08-03 04:00 | disposition home or self-care (01) ==
LOC: MED 01:09
DX: F15.10 Other stimulant abuse, uncomplicated (principal); F10.129 Alcohol abuse with intoxication, unspecified; I10 Essential (primary) hypertension; G40.909 Epilepsy, unspecified, not intractable, without status epilepticus; Z79.899 Other long term (current) drug therapy
CPT/HCPCS: 96360; 96372; 99283; J2060; J1630

== ENCOUNTER 2020-05-09 07:11 | Emergency (ER) | payer MEDICAID ==
[~2020-05-09] VITALS: Ht 188 cm; Wt 113.4 kg
[2020-05-09 07:20] VITALS: BP 165/113
[2020-05-09] MEDS ORDERED: LORazepam 2 MG/ML VIAL IM ONE (07:30)
[2020-05-09 09:00] VITALS: BP 160/110
[2020-05-09] MEDS ORDERED: DOPPLER MC ONE (09:27)
== END 2020-05-09 09:48 | disposition home or self-care (01) ==
LOC: MED 07:11
DX: F41.9 Anxiety disorder, unspecified (principal); F15.10 Other stimulant abuse, uncomplicated; I10 Essential (primary) hypertension; Z79.899 Other long term (current) drug therapy
CPT/HCPCS: 96372; 99283; J2060

== ENCOUNTER 2020-08-15 20:32 | Emergency (ER) | payer MEDICAID ==
[~2020-08-15] VITALS: Ht 193 cm; Wt 113.4 kg
--- NOTE | 2020-08-15 20:45 | NUR ---
PATIENT LEFT WITHOUT BEING SEEN BY DR. SABA. NO FURTHER CARE PROVIDED FOR PATIENT.
--- NOTE | 2020-08-15 20:45 | NUR ---
PT REFUSED TO HAVE VS TAKEN. PT LWBS AT THIS TIME.
--- NOTE | 2020-08-15 20:45 | NUR ---
Dell agrduno in ED - 08/15/20 at 2056 by [facility] UNABLE TO OBTAIN VS, PT REFUSED AND ELOPED.
== END 2020-08-15 20:45 | disposition left against medical advice (07) ==
LOC: MED 20:32
DX: F10.129 Alcohol abuse with intoxication, unspecified (principal); Z53.21 Procedure and treatment not carried out due to patient leaving prior to being seen by health care provider; Y90.9 Presence of alcohol in blood, level not specified